=== PATIENT | male | born 1960 | race American Indian/Alaskan Native ===

== ENCOUNTER 2017-12-26 11:16 | Day surgery (SDC) | payer BC ==
[~2017-12-26 11:16] MED LIST: AK-Dilate ONE; IOPIDINE OD ONE; IOPIDINE ONE; MYDRIACYL OD ONE; MYDRIACYL ONE; NEOFRIN OD ONE
[2017-12-26 11:52] VITALS: BP 150/88
== END 2017-12-26 12:54 | disposition home or self-care (01) ==
LOC: OR 11:16
PROVIDERS: ATTEND Specialist
DX: H26.491 Other secondary cataract, right eye (principal); I10 Essential (primary) hypertension; F17.210 Nicotine dependence, cigarettes, uncomplicated; Z79.899 Other long term (current) drug therapy; Z79.01 Long term (current) use of anticoagulants; Z98.42 Cataract extraction status, left eye; Z98.41 Cataract extraction status, right eye; Z98.890 Other specified postprocedural states

== ENCOUNTER 2018-09-25 12:23 | Day surgery (SDC) | payer BC ==
[~2018-09-25 12:23] MED LIST changes: -AK-Dilate ONE; -IOPIDINE OD ONE; -MYDRIACYL OD ONE; -NEOFRIN OD ONE; +NEOFRIN ONE
[2018-09-25] MEDS ORDERED: MYDRIACYL OS ONE (12:45)
[2018-09-25] MEDS ORDERED: NEOFRIN OS ONE (12:45)
[2018-09-25] MEDS ORDERED: IOPIDINE OS ONE (12:45)
[2018-09-25 15:16] VITALS: BP 143/70
== END 2018-09-25 12:24 | disposition home or self-care (01) ==
LOC: OR 12:23
PROVIDERS: ATTEND Specialist
DX: H26.492 Other secondary cataract, left eye (principal); E78.00 Pure hypercholesterolemia, unspecified; I10 Essential (primary) hypertension; K21.9 Gastro-esophageal reflux disease without esophagitis; F17.210 Nicotine dependence, cigarettes, uncomplicated; Z79.899 Other long term (current) drug therapy; Z98.41 Cataract extraction status, right eye; Z98.42 Cataract extraction status, left eye; Z98.890 Other specified postprocedural states